=== PATIENT | female | born 2000 | race Caucasian/White ===

== ENCOUNTER 2020-04-29 11:46 | Emergency (ER) | payer MEDICAID ==
[~2020-04-29] VITALS: Ht 154.9 cm; Wt 49.0 kg
[2020-04-29 11:58] VITALS: BP_SYST 128
--- NOTE | 2020-04-29 12:05 | NUR ---
Patient triaged and placed in waiting room. VSS and patient appears in no acute distress at this time. Awaiting available bed, and MD notified of need for MSE.
--- NOTE | 2020-04-29 12:10 | NUR ---
Patient to ER bed 4 to gown for evaluation. Side rails up.
--- NOTE | 2020-04-29 12:10 | NUR ---
Pt came to ER for bilateral earache radiating to jaw. Pt reports mild pain and full feeling in ear. Resting comfortably in gurney, no distress, awaiting MD.
--- NOTE | 2020-04-29 12:25 | NUR ---
ER at bedside examining patient.
[2020-04-29 12:42] LABS: BASOPHILS % (AUTO) 0.4 % (0.0-2.0); EOSINOPHILS # (AUTO) 0.1 K/uL (0.0-0.4); EOSINOPHILS % (AUTO) 0.6 % (0.0-4.0); HEMATOCRIT 44.5 % (36-48); HEMOGLOBIN 15.4 g/dL (12.0-16.0); LYMPHOCYTES # (AUTO) 2.2 K/uL (1.0-5.5); LYMPHOCYTES % (AUTO) 16.4 % (20.5-51.5); MEAN CORPUSCULAR HEMOGLOBIN 30 pg (27-31); MEAN CORPUSCULAR HGB CONC 35 % (32-36); MEAN CORPUSCULAR VOLUME 88 fL (79.0-98.0); MONOCYTES # (AUTO) 0.7 K/uL (0.0-1.0); MONOCYTES % (AUTO) 5.1 % (1.7-9.3); NEUTROPHILS # (AUTO) 10.4 K/uL (1.8-7.7); NEUTROPHILS % (AUTO) 77.5 % (40.0-70.0); PLATELET COUNT (AUTO) 332 K/uL (130-430); RED BLOOD CELL COUNT(AUTO) 5.08 MIL/uL (4.2-6.2); RED CELL DISTRIBUTION WIDTH 12.9 % (9.0-15.0); WHITE BLOOD COUNT (AUTO) 13.4 K/uL (4.8-10.8)
[2020-04-29 12:56] LABS: CALCIUM 9.4 mg/dL (8.4-11.0); CREATININE 0.75 mg/dL (0.55-1.30); POTASSIUM 3.2 mmol/L (3.5-5.1)
[2020-04-29 13:23] LABS: ALBUMIN 4.8 g/dL (3.4-4.8); TOTAL BILIRUBIN 1.4 mg/dL (0.0-1.0)
[2020-04-29 14:09] LABS: BILIRUBIN,URINE 1+ (NEGATIVE); BLOOD, URINE 2+ (NEGATIVE); COLOR,URINE YELLOW (YELLOW); GLUCOSE,URINE NEGATIVE (NEGATIVE); KETONES,URINE 1+ (NEGATIVE); LEUKOCYTE ESTERASE ,URINE 2+ (NEGATIVE); NITRITE, URINE NEGATIVE (NEGATIVE); PROTEIN URINE 1+ (NEGATIVE); UROBILINOGEN,URINE 0.2 (0.2-1.0)
[2020-04-29 14:11] LABS: CLARITY/URINE SLIGHTLY HAZY (CLEAR)
[2020-04-29 14:36] LABS: BACTERIA,URINE MODERATE /HPF (None Seen); RBC,URINE 0-3 /HPF (0-3)
[2020-04-29 14:37] LABS: MUCUS,URINE 2+ /LPF (None Seen)
[2020-04-29 14:56] VITALS: BP_SYST 128
--- NOTE | 2020-04-29 14:56 | NUR ---
Patient given written and verbal discharge instructions and verbalizes understanding. ER MD discussed with patient the results and treatment provided. Patient in stable condition. ID arm band removed. Rx of GINNY SOTELO given. Patient educated on pain management and to follow up with PMD. Pain Scale 0/10 Opportunity for questions provided and answered. Medication side effect fact sheet provided.
== END 2020-04-29 14:56 | disposition home or self-care (01) ==
LOC: SED 11:46
DX: O21.0 Mild hyperemesis gravidarum (principal); O23.41 Unspecified infection of urinary tract in pregnancy, first trimester; Z3A.01 Less than 8 weeks gestation of pregnancy
CPT/HCPCS: 36415; 76801; 76817; 80053; 81000-TC; 81025; 84702-TC; 85025; 86901; 87086; 99284

== ENCOUNTER 2022-09-15 11:59 | Emergency (ER) | payer MEDICAID ==
[~2022-09-15] VITALS: Ht 154.9 cm; Wt 52.2 kg
[2022-09-15 12:28] VITALS: BP_SYST 128
--- NOTE | 2022-09-15 13:00 | NUR ---
Patient to ER bed 01 to gown for evaluation. Side rails up. Report given to JOHN BROWN.
--- NOTE | 2022-09-15 13:05 | NUR ---
ER DR. JALLOH EXAMINING PT
--- NOTE | 2022-09-15 13:10 | NUR ---
Memo milligan in [facility] - 09/15/22 at 1632 by [email or web address] ROCK JALLOH EXAMINING PT
[2022-09-15] MEDS ORDERED: MORPHINE 4 MG INJ. 4 MG/ML VIAL IM ONE (13:15)
--- NOTE | 2022-09-15 13:59 | NUR ---
a/ox4 vss, stated her pain is decreased from the morphine, grandmother at bedside at this time
[2022-09-15] MEDS ORDERED: TRAM50TA2 PO (14:02)
[2022-09-15] MEDS ORDERED: IBUP-1969 PO (14:02)
--- NOTE | 2022-09-15 15:09 | NUR ---
Patient given written and verbal discharge instructions and verbalizes understanding. ER MD discussed with patient the results and treatment provided. Patient in stable condition. Rx of given. Patient educated on pain management and to follow up with PMD. Pain Scale [0]. Opportunity for questions provided and answered. Medication side effect fact sheet provided.
== END 2022-09-15 15:00 | disposition home or self-care (01) ==
LOC: SED 11:59
DX: M79.644 Pain in right finger(s) (principal); Z79.899 Other long term (current) drug therapy
CPT/HCPCS: 99283; 73140; 96372; J2270